=== PATIENT | female | born 1995 | race Caucasian/White ===

== ENCOUNTER → 2017-12-13 | Outpatient (REF) | payer OTHER | LOC: ZZSENDIN 13:56 | PROVIDERS: ATTEND Obstetrics & Gynecology | DX: O60.00 Preterm labor without delivery, unspecified trimester (principal) | CPT/HCPCS: 82731; 84112 ==

== ENCOUNTER 2018-01-27 00:11 | Observation (INO) | payer OTHER, MEDICAID ==
[~2018-01-27] VITALS: Ht 170.2 cm; Wt 77.6 kg
[2018-01-27] MEDS ORDERED: LR(*) 1000 ML BAG 1,000 ML IV PRN (00:14)
[2018-01-27] MEDS ORDERED: NIFEdipine 10 MG CAP PO ONE ×2 (00:55→01:38)
[2018-01-27] MEDS ORDERED: FERR324T16 PO (01:21)
[2018-01-27] MEDS ORDERED: NIFE10CA38 PO (01:21)
[2018-01-27] MEDS ORDERED: PREN-127 PO (01:21)
[2018-01-27 01:22] VITALS: Ht 170.2 cm; Wt 77.6 kg
[2018-01-27 01:45] VITALS: BP 131/81
[2018-01-27] MEDS ORDERED: APAP/HYDROCODONE 325/5 TAB PO ONE (02:05)
[2018-01-27] MEDS ORDERED: ACETAMINOPHEN 500 MG TAB PO ONE (02:05)
== END 2018-01-27 05:22 | disposition home or self-care (01) ==
LOC: OB 00:11
PROVIDERS: ADMIT Student in an Organized Health Care Education/Training Program; ATTEND Student in an Organized Health Care Education/Training Program
DX: O47.03 False labor before 37 completed weeks of gestation, third trimester (principal); Z3A.33 33 weeks gestation of pregnancy
CPT/HCPCS: G0378; G0379

== ENCOUNTER 2018-02-16 04:36 | Inpatient (IN) | payer OTHER, MEDICAID ==
[~2018-02-16] VITALS: Ht 172.7 cm; Wt 80.7 kg
[2018-02-16] VITALS (17 sets, daily range): BP systolic 88–134; BP diastolic 60–90; Ht 172.7 cm; Wt 80.7 kg
[~2018-02-16 04:36] MED LIST: FERR324T16 PO; NIFE10CA38 PO; PREN-127 PO
[2018-02-16] MEDS ORDERED: DLR(*) 1000 ML BAG 1,000 ML IV PRN (04:37)
[2018-02-16] MEDS ORDERED: METOCLOPRAMIDE 10 MG/2 ML SDV IVP ONE (04:40)
[2018-02-16] MEDS ORDERED: FAMOTIDINE 20 MG/50 ML PREMIX IVPB ONE (04:40)
[2018-02-16] MEDS ORDERED: CITRIC ACID/SOD CITRATE 30 ML PO ONE (04:40)
[2018-02-16] MEDS ORDERED: cefOXitin/DEX(*) 2GM/50ML PREM 50 ML IVPB ONE (04:40)
[2018-02-16 05:44] LABS: PLATELET COUNT, AUTOMATED 180 K/uL (150-450)
[2018-02-16] MEDS: LR(*) 1000 ML BAG 1,000 ML IV SCH ×2 (05:53→06:17)
[2018-02-16] MEDS ORDERED: fentaNYL CITR 100 MCG/2 ML AMP ONE (06:03)
[2018-02-16] MEDS ORDERED: MORPHINE PF 5 MG/10 ML AMP ONE (06:03)
[2018-02-16] MEDS ORDERED: OXYTOCIN 10 UNIT/ML SDV ONE (06:03)
[2018-02-16] MEDS ORDERED: NS 0.9% 20 ML SDV 20 ML ONE (06:03)
[2018-02-16] MEDS ORDERED: KETOROLAC 30 MG/ML VIAL ONE (06:06)
[2018-02-16] MEDS ORDERED: ONDANSETRON 4 MG/2 ML VIAL IVP ONE (06:10)
[2018-02-16] MEDS ORDERED: NEXT CASE 1 EA MISC IV ONE ×2 (06:14→06:41)
[2018-02-16] MEDS ORDERED: OXYTOCIN 30 UNIT/D5LR 500 ML 500 ML IV PRN (07:03)
--- NOTE | 2018-02-16 07:03 | History & Physical ---
History of Present Illness Age of Patient: 22 : 3 Para or TPAL: 0020 EDC per U/S: March 16, 2018 Estimated Gestational Age: 36.0 Chief Complaint Scheduled delivery by History of Present Illness Pt has mono-chorionic/di-amniotic twin gestation and is 36.0 weeks. Pt has been followed closely between our practice and [facility] in [place] with serial u/s exams and testing, all of which has been reassuring. Recent recommendations from M was for delivery at 36 weeks and by 37 weeks. Pt anxious about waiting beyond 36 weeks due to a potential for late and abruptly occurring TAPS. She received steroids 02/12/18 and 02/13/18. Bedside exam with u/s just now confirms babies in same position: A = breech with spine along maternal right and B = transverse with spine up and head in maternal RUQ. Past Medical, Surgical, Family and Obstetric Histories reviewed. Please see ACOG chart. History Allergies: Coded Allergies: No Known Drug Allergies (Unverified , 01/27/18) Med Rec Home Meds Reported Medications Ferrous Sulfate (FERROUS SULFATE) 324 Mg Tablet.dr, 324 MG PO QDAY 01/27/18 Vits W-Ca,Fe,Fa(<1MG) ( VITAMINS) 1 Each Tablet, 1 EACH PO DAILY, TAB 01/27/18 Nifedipine (PROCARDIA) 10 Mg Capsule, 10 MG PO QDAY Y for CONTRACTIONS, CAPSULE 01/27/18 Review of Systems All Systems Reviewed/Normal: Yes, Except as Noted Other as per HPI Exam General Exam Vital Signs Vital Signs Date Time Temp Pulse Resp B/P (MAP) Pulse Ox O2 Delivery O2 Flow Rate FiO2 02/16/18 06:08 99.3 108 16 134/79 (97) 95 Room Air General Apperance: Alert/Awake/No Acute Distress Neuro: No Gross deficits Cardiovascular: Regular Rate and Rhythm Respiratory: No Respiratory Distress Abdomen: Soft, Non-Tender, Non-Distended, Gravid - Non-Tender Integumentary: Skin Intact without Lesions or Rash Psychological: Alert & Oriented X3, Appropriate Mood & Affect Fetus Heart Tone Variabilty: Moderate FHT Accelerations: 15X15 FHT Category: I Medical Decision Making Data Points Result Diagram: 02/16/18 0518 VTE Prophylasis: Adult Deep Vein Thrombosis/Pulmonary: No Pharmacological Contraindicati: Pt at Low Risk for VTE Mechanical Contraindications: Pt at Low Risk for VTE Assessment and Plan Problems: (1) Twin , monochorionic diamniotic in third trimester Assessment & Plan: delivery as planned and pt aware of risks/ benefits. Questions answered. Reviewed surgery. BRANDON ELDRIDGE MD Feb 16, 2018 07:03
[2018-02-16] MEDS ORDERED: ZOLPIDEM TARTRATE 5 MG TAB PO PRN (07:05)
[2018-02-16] MEDS ORDERED: PROMETHAZINE 25 MG/ML 1 ML AMP IVP PRN (07:05)
[2018-02-16] MEDS ORDERED: LANOLIN OINT 7 GM TUBE TP PRN (07:05)
[2018-02-16] MEDS ORDERED: ONDANSETRON 4 MG/2 ML VIAL IV PRN (07:05)
[2018-02-16] MEDS ORDERED: ACETAMINOPHEN 325 MG TAB PO PRN (07:05)
[2018-02-16] MEDS ORDERED: ePHEDrine 25 MG/5 ML DISP.SYR IVP ONE (07:31)
--- NOTE | 2018-02-16 08:00 | Post Operative Note ---
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 APGARS - A= 7, 9; B = 7, 8 Procedure(s): Primary LTCS Complications: none Fluids Fluids: 800 ml Estimated Blood Loss: 500 ml Dictated Date OP Note Dictated: Feb 16, 2018 Time OP Note Dictated: 07:59 Copies to: BRANDON ELDRIDGE MD, TRAVIS MD Feb 16, 2018 08:00
--- NOTE | 2018-02-16 08:18 | Anesthesia OB Pre-Anes Eval ---
History of Present Illness Anesthesia Start Date: Feb 16, 2018 Anesthesia Start Time: 06:54 OB Anesthesia Diagnosis: primary c/section Complications: Twins EDC: March 16, 2018 : 3 Para: 0 Vital Signs: Vital Signs 02/16/18 06:08 Temp 99.3 Pulse 108 Resp 16 B/P (MAP) 134/79 (97) Pulse Ox 95 O2 Delivery Room Air Pain Ratin Result Diagram: 02/16/18 0518 Height (Inches): 68.00 Weight (Pounds): 178 BMI Calculated: 27.06 Past Medical History Medical History: no pertinent history Surgical History: other (wisdom teeth) Previous Anesthesia: other Attended Childbirth Classes?: No Hx Anesthesia Reactions: No Hx Family Anesthesia Reaction: No Home Meds Reported Medications Ferrous Sulfate (FERROUS SULFATE) 324 Mg Tablet.dr, 324 MG PO QDAY 01/27/18 Vits W-Ca,Fe,Fa(<1MG) ( VITAMINS) 1 Each Tablet, 1 EACH PO DAILY, TAB 01/27/18 Nifedipine (PROCARDIA) 10 Mg Capsule, 10 MG PO QDAY Y for CONTRACTIONS, CAPSULE 01/27/18 Allergies: Coded Allergies: No Known Drug Allergies (Unverified , 01/27/18) Anesthesia OB ROS Neurological: No migraines/headaches, No seizures, No neuropathy, No other ENT: Denies Tooth caps, Denies Loose teeth, Denies Chipped teeth, Denies Dentures, Denies Bridges, Denies Retainers, Denies Veneers, Denies Implants, Denies Tongue ring, Denies Other Pulmonary: No asthma, No smoker (pks/day/yrs), No other Airway Class: ll Cardiovascular ROS: No edema, No arrhythmia, No other GI ROS: NPO Last Solids Date: Feb 15, 2018 Last Solids Time: 18:30 ROS: No Herpes, No STD(s), No Liver Disease, No Renal Disease, No Other Endocrine ROS: No diabetes, No gestational diabetes, No thyroid disorder, No other Musculoskeletal ROS: No low back pain, No low back injury, No scoliosis, No other ASA Classification: 2 Assessment and Plan Anesthesia Plan: SAB Anesthesia Stop Day: Feb 16, 2018 Anesthesia Stop Time: 08:10 SANDER MCKEON CRNA Feb 16, 2018 08:18
[2018-02-16] MEDS: DOCUSATE CALCIUM 240 MG CAP PO SCH ×2 (10:10→21:47)
[2018-02-16] MEDS: FAMOTIDINE 20 MG TAB PO SCH ×2 (10:10→21:47)
[2018-02-16] MEDS: DLR(*) 1000 ML BAG 1,000 ML IV PRN ×3 (10:12→21:41)
[2018-02-16] MEDS: KETOROLAC 30 MG/ML VIAL IVP SCH ×2 (11:34→17:33)
--- NOTE | 2018-02-16 16:08 | OPERATIVE REPORT 1 ---
EVENT DATE: February 16, 2018 SURGEON: Rambo Teixeira MD ANESTHESIA: Spinal, Rosalie Lombardo, [employer]: Ceasar Hauser DO PREOPERATIVE DIAGNOSES 1. Twin , monochorionic/diamniotic at 36.0 weeks. 2. Breech presentation of twin A. 3. Transverse presentation of twin B. POSTOPERATIVE DIAGNOSES 1. Twin , monochorionic/diamniotic at 36.0 weeks. 2. Breech presentation of twin A. 3. Transverse presentation of twin B. PROCEDURE PERFORMED Primary low transverse section via Pfannenstiel skin incision. ESTIMATED BLOOD LOSS 500 mL FLUIDS Crystalloid 800 mL IV. URINE OUTPUT 175 mL FINDINGS Female infants; A delivered breech, right sacrum anterior, Apgars 7 and 9; B delivered vertex, and Apgars were 7 and 8. Normal-appearing uterus, tubes, and ovaries. PROCEDURE IN DETAIL The patient was brought to the operating room. Spinal anesthetic was placed. She was moved to the dorsal supine position with a leftward tilt and prepped and draped in the usual sterile fashion. Using a knife, a Pfannenstiel skin incision was made and carried through to the underlying rectus fascia. This was nicked in the midline and extended laterally. Rectus muscles were dissected off the rectus fascia using sharp dissection. Rectus muscles were then in the midline, and the peritoneum was entered bluntly and extended laterally. Bladder blade was inserted. Vesicouterine peritoneum was identified, tented, entered sharply, and extended laterally. Bladder flap was created digitally. This exposed the lower segment of the uterus. Using the scalpel, a low transverse incision was made and carried through to the intra- amniotic space. There was clear fluid upon amniotomy. A hand was inserted. Twin A was encountered in the breech presentation. It was elevated to the incision, and fundal pressure assisted with the delivery of the infant to the level of the shoulders. The legs spontaneously delivered and arms as well. The baby was rotated into the position. The head delivered without further manipulation. Mouth and nose were bulb suctioned, and cord was allowed to stop pulsating. It was then clamped and cut. Infant was passed to the awaiting resuscitation team. Cord samples were obtained. The first umbilical cord was marked with a single cord clamp. Twin B was brought down to the vertex position by manual manipulation. Amniotomy was performed with clear fluid. The infant was brought to the incision, and fundal pressure was applied. delivered occiput right anterior, and further fundal pressure effected delivery of the anterior and posterior shoulders. The remainder of the infant followed without further difficulty. Mouth and nose were again bulb suctioned. The cord was allowed to stop pulsating. The cord was clamped and cut, and the infant was passed to the awaiting resuscitation team. Cord sample was obtained. Twin B's cord was marked with two cord clamps. At this point, the placenta was manually removed. The uterus was exteriorized and cleared of clots and debris. Bruno clamps were placed for hemostasis while the repair was performed with #1 Monocryl in a running locking stitch. A second suture of the same type was used to imbricate the first layer, completing two- layer closure. The uterus was firm at this point. There was no visible bleeding. The posterior cul-de-sac was irrigated and swept clear of clots and debris. Uterus was returned to the abdomen, and bilateral pelvic gutters were irrigated and swept clear of clots and debris. The incision was again inspected in situ and found to be hemostatic. Therefore, the parietal peritoneum was repaired using a 3-0 Vicryl in a running nonlocking stitch. A nonlocking stitch of the same stitch was used to reapproximate the rectus muscles in the midline. A few capillary bleeders were cauterized. The rectus fascia was then repaired using an 0 Vicryl in a running nonlocking stitch. Subcuticular space was irrigated and swept clear of clots and debris. The space was closed with a 3-0 Vicryl Plus in a running nonlocking stitch. Skin was repaired with a 4-0 Monocryl simple subdermal and covered with Dermabond skin adhesive. She tolerated the procedure well. Sponge, lap, needle , and instrument counts were all correct times three. She was taken to recovery in stable condition without further complication. TYLER
[2018-02-16] MEDS: SIMETHICONE 80 MG CHEW CHEW PRN (21:47)
[2018-02-17] MEDS: KETOROLAC 30 MG/ML VIAL IVP SCH (00:12)
[2018-02-17 02:00] VITALS: BP 127/78
[2018-02-17 04:30] VITALS: BP 115/75
[2018-02-17] MEDS: IBUPROFEN 800 MG TAB PO SCH ×3 (06:06→22:12)
[2018-02-17 06:19] LABS: PLATELET COUNT, AUTOMATED 159 K/uL (150-450)
[2018-02-17 09:00] VITALS: BP 108/79
[2018-02-17] MEDS: DOCUSATE CALCIUM 240 MG CAP PO SCH ×2 (09:06→22:12)
[2018-02-17] MEDS: FAMOTIDINE 20 MG TAB PO SCH ×2 (09:06→22:13)
--- NOTE | 2018-02-17 09:54 | OB/GYN Progress Note ---
OB Subjective Progress Notes Subjective Doing well. Pain controlled and ambulating well. Has showered and no issues. Bleeding light. babies well. Dove out and has voided spontaneous. GI: NEG Nausea : Voiding Well Pain: Mild OB Objective Physical Exam Vital Signs Date Time Temp Pulse Resp B/P (MAP) Pulse Ox O2 Delivery O2 Flow Rate FiO2 02/17/18 04:30 98.7 86 18 115/75 (88) 96 Room Air 02/17/18 02:00 1.0 General Appearance: Alert/Awake/No Acute Distress Neurological: No Gross deficits Cardiovascular: Normal Rhythm & Peripheral Pulses, Regular Rate and Rhythm Respiratory: No Respiratory Distress, Clear to Auscultation Abdomen: Soft, Non-Tender, Non-Distended, Bowel Sounds Present, Fundus Firm Incision: Clean, Dry, Intact, Dermabond Integumentary: Skin Intact without Lesions or Rash Psychological: Alert & Oriented X3, Appropriate Mood & Affect Result Diagram: 02/17/18 0605 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
[2018-02-17 12:00] VITALS: BP 127/89
[2018-02-17] MEDS: SIMETHICONE 80 MG CHEW CHEW PRN (14:33)
[2018-02-17 16:05] VITALS: BP 114/80
[2018-02-17 19:40] VITALS: BP 136/89
[2018-02-18] MEDS: IBUPROFEN 800 MG TAB PO SCH ×3 (06:12→22:59)
[2018-02-18 09:00] VITALS: BP 119/82
[2018-02-18] MEDS ORDERED: DIPHTH/TETANUS/ACEL. PERTUSSIS IM ONLY ONE (09:00)
[2018-02-18] MEDS ORDERED: INFLUENZA VIRUS VAC 0.5 ML SYR IM ONLY ONE (09:00)
[2018-02-18] MEDS ORDERED: MEASLES,MUMP,RUBELLA VAC 0.5ML SUBQ ONE (09:00)
[2018-02-18] MEDS: DOCUSATE CALCIUM 240 MG CAP PO SCH ×2 (09:02→19:46)
[2018-02-18] MEDS: SIMETHICONE 80 MG CHEW CHEW PRN (09:02)
[2018-02-18] MEDS: FAMOTIDINE 20 MG TAB PO SCH ×2 (09:02→19:46)
[2018-02-18 11:50] VITALS: BP 133/85
[2018-02-18 15:20] VITALS: BP 112/77
[2018-02-18 20:00] VITALS: BP 129/79
[2018-02-19] MEDS: IBUPROFEN 800 MG TAB PO SCH (05:20)
[2018-02-19 07:10] VITALS: BP 116/84
--- NOTE | 2018-02-19 08:42 | OB/GYN Progress Note ---
OB Subjective Progress Notes Subjective Doing very well. Ambulating and little pain. Voiding well and bowel activity. Babies are ready to go home. GI: NEG Nausea : Voiding Well Pain: Mild OB Objective Physical Exam Vital Signs Date Time Temp Pulse Resp B/P (MAP) Pulse Ox O2 Delivery O2 Flow Rate FiO2 02/19/18 07:10 98.3 91 16 116/84 (95) 95 Room Air 02/17/18 02:00 1.0 General Appearance: Alert/Awake/No Acute Distress Neurological: No Gross deficits Cardiovascular: Normal Rhythm & Peripheral Pulses, Regular Rate and Rhythm Respiratory: No Respiratory Distress, Clear to Auscultation Abdomen: Soft, Non-Tender, Non-Distended, Bowel Sounds Present, Fundus Firm Incision: Clean, Dry, Intact, Dermabond Integumentary: Skin Intact without Lesions or Rash Psychological: Alert & Oriented X3, Appropriate Mood & Affect Result Diagram: 02/17/18 0605 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 BRANDON ELDRIDGE MD Feb 19, 2018 08:42
[2018-02-19] MEDS ORDERED: PER PO (08:44)
[2018-02-19] MEDS ORDERED: IBUP800T37 PO (08:44)
--- NOTE | 2018-02-19 08:46 | OB/GYN Discharge Summary ---
Discharge Summary Reason for Hosp/Final Diag: (1) Twin , monochorionic diamniotic in third trimester (2) Status post delivery Hospital Course & Plan: Reviewed discharge instructions and will see at 2 weeks for incision check. Lates Vital Signs Vital Signs Date Time Temp Pulse Resp B/P (MAP) Pulse Ox O2 Delivery O2 Flow Rate FiO2 02/19/18 07:10 98.3 91 16 116/84 (95) 95 Room Air 02/17/18 02:00 1.0 Weight (Pounds): 178 Result Diagram: 02/17/1805 Hematology Test 02/17/18 06:05 Red Blood Count 3.36 M/uL (4.17-5.56) Mean Corpuscular Volume 82.4 fL (80.0-96.0) Mean Corpuscular Hemoglobin 28.5 pg (26.0-33.0) Mean Corpuscular Hemoglobin Concent 34.6 g/dL (32.0-36.0) Red Cell Distribution Width 18.1 % (11.5-14.5) Mean Platelet Volume 8.3 fL (7.2-11.1) Neutrophils (%) (Auto) 64.9 % (39.4-72.5) Lymphocytes (%) (Auto) 24.4 % (17.6-49.6) Monocytes (%) (Auto) 7.8 % (4.1-12.4) Eosinophils (%) (Auto) 2.6 % (0.4-6.7) Basophils (%) (Auto) 0.3 % (0.3-1.4) Nucleated RBC Relative Count (auto) 0.0 /100WBC Neutrophils # (Auto) 6.8 K/uL (2.0-7.4) Lymphocytes # (Auto) 2.6 K/uL (1.3-3.6) Monocytes # (Auto) 0.8 K/uL (0.3-1.0) Eosinophils # (Auto) 0.3 K/uL (0.0-0.5) Basophils # (Auto) 0.0 K/uL (0.0-0.1) Nucleated RBC Absolute Count (auto) 0.00 K/uL Peripheral Blood Smear No Y/N Chemistry Test 02/17/18 06:05 White Blood Count 10.5 k/uL (4.5-11.0) Red Blood Count 3.36 M/uL (4.17-5.56) Hemoglobin 9.6 g/dL (12.0-16.0) Hematocrit 27.7 % (34.0-47.0) Mean Corpuscular Volume 82.4 fL (80.0-96.0) Mean Corpuscular Hemoglobin 28.5 pg (26.0-33.0) Mean Corpuscular Hemoglobin Concent 34.6 g/dL (32.0-36.0) Red Cell Distribution Width 18.1 % (11.5-14.5) Platelet Count 159 K/uL (150-450) Mean Platelet Volume 8.3 fL (7.2-11.1) Neutrophils (%) (Auto) 64.9 % (39.4-72.5) Lymphocytes (%) (Auto) 24.4 % (17.6-49.6) Monocytes (%) (Auto) 7.8 % (4.1-12.4) Eosinophils (%) (Auto) 2.6 % (0.4-6.7) Basophils (%) (Auto) 0.3 % (0.3-1.4) Nucleated RBC Relative Count (auto) 0.0 /100WBC Neutrophils # (Auto) 6.8 K/uL (2.0-7.4) Lymphocytes # (Auto) 2.6 K/uL (1.3-3.6) Monocytes # (Auto) 0.8 K/uL (0.3-1.0) Eosinophils # (Auto) 0.3 K/uL (0.0-0.5) Basophils # (Auto) 0.0 K/uL (0.0-0.1) Nucleated RBC Absolute Count (auto) 0.00 K/uL Peripheral Blood Smear No Y/N Condition: Improved Discharge: Home, Self Halfway Meds Active Scripts Oxycodone/Acetaminophen (OXYCODONE/ACETAMINOPHEN 5MG/325 MG) 5 Mg/325 Mg Tab, 1- 2 TAB PO Q4H Y for PAIN, #20 TAB 0 Refills Prov:RAMBO TEIXEIRA MD 02/19/18 Reported Medications Ferrous Sulfate (FERROUS SULFATE) 324 Mg Tablet.dr, 324 MG PO QDAY 01/27/18 Vits W-Ca,Fe,Fa(<1MG) ( VITAMINS) 1 Each Tablet, 1 EACH PO DAILY, TAB 01/27/18 Nifedipine (PROCARDIA) 10 Mg Capsule, 10 MG PO QDAY Y for CONTRACTIONS, CAPSULE 01/27/18 Follow up Referrals: 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 Teixeira [phone] Follow up in: 2 wks PO Discharge Diet: As Tolerates Discharge Activity: As Tolerates, No Heavy Lifting x 6 wks, No Heavy Lifting > 10lb, Pelvic Rest Copies to: RAMBO TEIXEIRA MD, TRAVIS MD Feb 19, 2018 08:46
[2018-02-19] MEDS: DOCUSATE CALCIUM 240 MG CAP PO SCH (09:29)
[2018-02-19] MEDS: FAMOTIDINE 20 MG TAB PO SCH (09:29)
--- NOTE | 2018-02-19 09:29 | Anesthesia Post Eval Note ---
Anesthesia Post Eval Note Vital Signs Date Time Temp Pulse Resp B/P (MAP) Pulse Ox O2 Delivery O2 Flow Rate FiO2 02/19/18 07:10 98.3 91 16 116/84 (95) 95 Room Air 02/17/18 02:00 1.0 Pt able to participate in Eval: Yes Cardiovascular Status: Satisfactory Respiratory Status: Satisfactory Pain Managment: Satisfactory PO Nausea/Vomiting: Satisfactory Temperature Management: Satisfactory Mental Status: Satisfactory, Alert, Oriented X3 Post-Op Hydration Status: Satisfactory, Tolerating PO Well, Voiding w/o Difficulty Anesthesia Type: SAB Anesthesia Tolerance: Tolerated procedure well without apparent anesthetic complications. LP site clear, no redness or edema. Denies headache or any residual paresthesia. Vital Signs Stable, Patient comfortable and condition stable. HARRY CARDONA CRNA Feb 19, 2018 09:29
== END 2018-02-19 10:35 | disposition home or self-care (01) | DRG 766 ==
LOC: OB 04:36
PROVIDERS: ADMIT Obstetrics & Gynecology; ATTEND Obstetrics & Gynecology
PROC: 10D00Z1 Extraction of Products of Conception, Low, Open Approach (ICD-10-PCS; principal; 2018-02-16 06:45)
DX: O30.033 Twin pregnancy, monochorionic/diamniotic, third trimester (principal); O32.1XX1 Maternal care for breech presentation, fetus 1; Z3A.36 36 weeks gestation of pregnancy; Z37.2 Twins, both liveborn
CPT/HCPCS: 36415; 85014; 85018; 85025; 86850; 86900; 86901; 88307; J0694; J1885; J2270; J2405; J2590; J2765; J3010; J3490; J7050; J7120